=== PATIENT | female | born 1950 | race Caucasian/White ===

== ENCOUNTER → 2016-11-11 | Outpatient (CLI) | payer OTHER ==
[~2016-11-11] MED LIST: ASPIRIN325 MG PO; BENICAR HCT1 TABLE2 PO; DUETACT PO; LIPITOR40 MG PO
== END | disposition home or self-care (01) ==
LOC: RAD 13:33
DX: M25.511 Pain in right shoulder (principal)
CPT/HCPCS: 73030

== ENCOUNTER 2018-01-30 12:17 | Inpatient (IN) | payer OTHER ==
[~2018-01-30] VITALS: Ht 162.6 cm; Wt 76.4 kg
[2018-01-30 13:48] LABS: APPEARANCE CLEAR ((CLEAR)); BILIRUBIN NEGATIVE; BLOOD SMALL; COLOR YELLOW ((YELLOW)); GLUCOSE (STRIP) >=500; KETONES 20; LEUKOCYTES NEGATIVE; NITRITE NEGATIVE; PROTEIN (STRIP) 100; SPECIFIC GRAVITY 1.031 (1.000-1.030); UROBILINOGEN 0.2 MG/DL (0.2-1.0)
[2018-01-30 13:53] LABS: BACTERIA NONE SEEN /HPF; EPITHELIAL CELLS RARE /HPF; MUCUS NONE SEEN /LPF; RED BLOOD CELLS 15-20 /HPF (0-5); UCUL ADDED? NO; WHITE BLOOD CELLS 0-5 /HPF (0-5)
[2018-01-30 13:53] LABS: HEMATOCRIT 40.1 % (36.0-46.0); HEMOGLOBIN 13.7 G/DL (11.9-15.5); MCH 30.4 PG (29.0-34.0); MCHC 34.2 G/DL (30.0-36.0); MCV 89.1 FL (83-99); PLATELET COUNT 264 K/uL (156-360); RBC DIS.WIDTH-CV 13.2 % (11.8-14.6); RBC DIS.WIDTH-SD 43.5 % (39-53)
[2018-01-30 14:03] LABS: CHLORIDE 98 mEq/L (99-109); POTASSIUM 3.6 mEq/L (3.7-5.4); SODIUM 136 mEq/L (136-147)
[2018-01-30 14:04] LABS: GLUCOSE 236 mg/dL (70-99)
[2018-01-30 14:08] LABS: CREATININE 0.7 mg/dL (0.6-1.3); GFR ESTIMATE (CALCULATED) > 59 mL/min/
[2018-01-30 14:09] LABS: UREA NITROGEN (BUN) 11 mg/dL (9-23)
[2018-01-30 14:28] LABS: INTER. NORMALIZED RATIO 1.2
[2018-01-30 14:31] LABS: PTT 31.2 SEC (25-37)
[2018-01-30 14:34] LABS: ALBUMIN 3.9 g/dL (3.2-4.8)
[2018-01-30 14:37] LABS: TOTAL PROTEIN 8.1 g/dL (6.4-8.3)
[2018-01-30 14:38] LABS: BASOPHIL (%) 0.2 % (0-1); EOSINOPHIL (%) 0 % (0-5); LYMPHOCYTE (%) 10.1 % (15-42); LYMPHOCYTE COUNT 2.1 K/uL (1.0-2.8); MONOCYTE (%) 7.1 % (3-12); MONOCYTE COUNT 1.5 K/uL (0-0.8); NEUTROPHIL (%) 81.6 % (45-76); NEUTROPHIL COUNT 17.1 K/uL (1.8-6.4)
[2018-01-30 14:39] LABS: TOTAL BILIRUBIN 0.4 mg/dL (0.0-1.0)
[2018-01-30 14:40] LABS: ALKALINE PHOSPHATASE 124 IU/L (3-129)
[2018-01-30 14:42] LABS: AST (GOT) 24 IU/L (2-34); DIRECT BILIRUBIN 0.2 mg/dL (0.0-0.3)
[2018-01-30 14:43] LABS: ALT (GPT) 32 IU/L (3-49)
[2018-01-30 14:45] LABS: TROP-I INTERPRETATION NEGATIVE; TROPONIN-I 0.01 ng/mL (0.0-0.30)
[2018-01-30] MEDS ORDERED: NORVASC5 MG PO (18:43)
[2018-01-30] MEDS ORDERED: HYZAAR 100-21 TABLET PO (18:43)
[2018-01-30] MEDS ORDERED: TRADJENTA5 MG PO (18:44)
[2018-01-30] MEDS ORDERED: GLUCOTROL5 MG PO (18:44)
[2018-01-30] MEDS ORDERED: SYMBICORT60 INHALAT IH (18:45)
[2018-01-30] MEDS ORDERED: TYLENOL REGULA325 MG PO (18:47)
[2018-01-30 22:31] VITALS: BP 167/74
[2018-01-30 23:16] LABS: HDL CHOLESTEROL 42 MG/DL (Desirable>=50); LDL CHOLESTEROL 85 mg/dL (Desirable<100); NON-HDL CHOLESTEROL 111 mg/dL (Desirable<160); TOTAL CHOLESTEROL 153 mg/dL (Desirable<200); TRIGLYCERIDES 129 MG/DL (Normal: <150)
[2018-01-31 04:02] VITALS: BP 178/84
[2018-01-31 06:50] LABS: HEMATOCRIT 34.9 % (36.0-46.0); HEMOGLOBIN 11.6 G/DL (11.9-15.5); MCH 30.4 PG (29.0-34.0); MCHC 33.2 G/DL (30.0-36.0); MCV 91.4 FL (83-99); NRBC (%) 0.1 /100 WBC (0-0); PLATELET COUNT 245 K/uL (156-360); RBC DIS.WIDTH-CV 13.6 % (11.8-14.6); RBC DIS.WIDTH-SD 45.2 % (39-53); RED BLOOD COUNT 3.82 M/uL (3.80-5.20); WHITE BLOOD COUNT 17.6 K/uL (4.1-10.2)
[2018-01-31 07:01] LABS: CHLORIDE 103 MEQ/L (99-109); POTASSIUM 3.7 MEQ/L (3.7-5.4); SODIUM 136 MEQ/L (136-147)
[2018-01-31 07:11] LABS: BASOPHIL (%) 0.2 % (0-1); EOSINOPHIL (%) 0.1 % (0-5); IMMATURE GRANULOCYTE (%) 0.6 % (0.0-0.7); LYMPHOCYTE (%) 10.7 % (15-42); LYMPHOCYTE COUNT 1.9 K/uL (1.0-2.8); MONOCYTE (%) 5.4 % (3-12); MONOCYTE COUNT 0.9 K/uL (0-0.8); NEUTROPHIL COUNT 14.6 K/uL (1.8-6.4); PLAT.SUFFICIENCY ADEQUATE
[2018-01-31 07:26] VITALS: BP 147/68
[2018-01-31 08:10] LABS: CREATININE 0.4 MG/DL (0.6-1.3); GFR ESTIMATE (CALCULATED) > 59 mL/min/; GLUCOSE 225 mg/dL (70-99); UREA NITROGEN (BUN) 10 mg/dL (9-23)
[2018-01-31 08:19] LABS: HEMOGLOBIN A1c (GLYCOHEMOGLOB) 8.4 % (Below 5.7)
[2018-01-31 11:20] VITALS: BP 146/70
[2018-01-31 12:22] LABS: C DIFF TOXIN POSITIVE (NEGATIVE)
[2018-01-31 20:00] VITALS: BP 159/84
[2018-01-31 23:51] VITALS: BP 163/74
[2018-02-01 03:44] VITALS: BP 145/67
[2018-02-01 07:46] LABS: CHLORIDE 101 MEQ/L (99-109); CREATININE 0.5 MG/DL (0.6-1.3); GFR ESTIMATE (CALCULATED) > 59 mL/min/; GLUCOSE 282 mg/dL (70-99); SODIUM 139 MEQ/L (136-147); UREA NITROGEN (BUN) 12 mg/dL (9-23)
[2018-02-01 08:00] VITALS: BP 142/74
[2018-02-01 16:29] VITALS: BP 142/74; BP 163/67
[2018-02-01 20:38] VITALS: BP 120/60
[2018-02-02 00:15] VITALS: BP 131/60
[2018-02-02 04:26] VITALS: BP 154/70
[2018-02-02 06:30] LABS: CHLORIDE 104 MEQ/L (99-109); CREATININE 0.5 MG/DL (0.6-1.3); GFR ESTIMATE (CALCULATED) > 59 mL/min/; GLUCOSE 253 mg/dL (70-99); POTASSIUM 4.1 MEQ/L (3.7-5.4); SODIUM 137 MEQ/L (136-147); UREA NITROGEN (BUN) 15 mg/dL (9-23)
[2018-02-02 08:00] VITALS: BP 148/70
[2018-02-02] MEDS ORDERED: DUONEB 2.5-0.5 M3 ML AEROSOL (11:46)
[2018-02-02] MEDS ORDERED: AMOX TR-K CLV1 EAC4 PO (11:46)
[2018-02-02] MEDS ORDERED: SPIRIVA RESPIMAT4 GM IH (11:47)
[2018-02-02] MEDS ORDERED: NICOTINE PATCH1 EAC2 TD (11:47)
[2018-02-02] MEDS ORDERED: VANCOCIN HCL125 MG PO (11:48)
[2018-02-02] MEDS ORDERED: DELTASONE20 M1 PO (11:49)
[2018-02-02 11:56] VITALS: BP 140/86
== END 2018-02-02 14:37 | disposition home or self-care (01) | DRG 193 ==
LOC: EME 12:17 → EDOF 20:44 → 5SOUTH 20:44 → ENRESERV 20:45 → 5SOUTH 22:02
PROVIDERS: Hospitalist; Physician Assistant Medical
DX: J13 Pneumonia due to Streptococcus pneumoniae (principal); A41.9 Sepsis, unspecified organism; A04.72 Enterocolitis due to Clostridium difficile, not specified as recurrent; J44.0 Chronic obstructive pulmonary disease with (acute) lower respiratory infection; J44.1 Chronic obstructive pulmonary disease with (acute) exacerbation; E11.36 Type 2 diabetes mellitus with diabetic cataract; E78.5 Hyperlipidemia, unspecified; F17.210 Nicotine dependence, cigarettes, uncomplicated; I10 Essential (primary) hypertension; I25.10 Atherosclerotic heart disease of native coronary artery without angina pectoris; R09.02 Hypoxemia; F41.9 Anxiety disorder, unspecified; R00.0 Tachycardia, unspecified; R59.0 Localized enlarged lymph nodes; Z88.1 Allergy status to other antibiotic agents; Z79.51 Long term (current) use of inhaled steroids; Z79.52 Long term (current) use of systemic steroids; Z95.5 Presence of coronary angioplasty implant and graft; Z79.84 Long term (current) use of oral hypoglycemic drugs; Z82.49 Family history of ischemic heart disease and other diseases of the circulatory system
CPT/HCPCS: 70450; 71045; 71046; 71260; 80048; 80061; 80076; 81003; 82140; 82948; 83036; 83605; 84484; 85025; 85379; 85610; 85730; 87040; 87070; 87077; 87106; 87181; 87205; 87449; 87493; 87502; 93005; 93880; 94010; 94640; 94640 76; 94799; 99202; 99281; 99285; J0295; J0456; J0696; J1644; J1815; J7030; J7050; J7512